=== PATIENT | male | born 1990 | race Caucasian/White ===

== ENCOUNTER 2017-08-21 21:56 | Emergency (ER) | payer SELFPAY | END 2017-08-22 00:55 | disposition home or self-care (01) | LOC: D.ER 21:56 | DX: J45.901 Unspecified asthma with (acute) exacerbation (principal); F17.200 Nicotine dependence, unspecified, uncomplicated ==

== ENCOUNTER 2020-12-12 14:50 | Emergency (ER) | payer SELFPAY ==
[~2020-12-12] VITALS: Ht 162.6 cm; Wt 54.5 kg
[2020-12-12 14:59] VITALS: BP 121/78; Ht 162.6 cm; Wt 54.5 kg
[2020-12-12] MEDS ORDERED: PROAIR HFA8.5 G1 INH (15:02)
[2020-12-12] MEDS ORDERED: ALBUTEROL SULF8.5 GM INH (17:47)
== END 2020-12-12 17:59 | disposition home or self-care (01) ==
LOC: D.ER 14:50
DX: J45.901 Unspecified asthma with (acute) exacerbation (principal); F15.10 Other stimulant abuse, uncomplicated; Z72.0 Tobacco use